=== PATIENT | male | born 1985 | race Caucasian/White ===

== ENCOUNTER 2020-02-24 11:05 | Outpatient (NON) | payer OTHER, SELFPAY ==
[2020-02-24 21:33] LABS: SARS-CoV-2 RNA PCR Negative
== END 2020-02-24 11:06 ==
PROVIDERS: Visit Provider Nurse Practitioner Family
DX: R68.89 Other general symptoms and signs (principal); Z20.828 Contact with and (suspected) exposure to other viral communicable diseases
CPT/HCPCS: 87635; C9803; U0003

== ENCOUNTER 2023-08-05 16:15 | Emergency (ER) | payer OTHER, SELFPAY ==
[2023-08-05 16:30] VITALS: BP 123/83; PULSE 92; RESP 16; TEMP 36.9; O2SAT 100
--- NOTE | 2023-08-05 16:55 | ED.EXTPRO ---
HPI - Extremity Problem General Chief complaint: Extremity Problem,Nontraumatic Stated complaint: Left Shoulder/Arm Pain Time Seen by Provider: 08/05/23 16:56 Source: patient Mode of arrival: ambulatory Limitations: no limitations History of Present Illness HPI Narrative: 38-year-old male presents with complaint of left upper back pain for the past several days. Patient has tingling sensation to left arm. Reports that left upper back pain improves with movement but at rest is a nagging constant pain. Taking [facility] with no relief of symptoms. Had similar pain 2 years ago and had imaging done that was normal. Was given cortisone injection to left shoulder which helped. Patient has normal range of motion and is distal neurovascularly intact. All systems reviewed and negative except as noted above. Related Data Home Medications Medication Instructions Recorded Confirmed levothyroxine 50 mcg tablet 50 mcg PO DAILY 08/05/23 08/05/23 Allergies Allergy/AdvReac Type Severity Reaction Status Date / Time No Known Allergies Allergy Mild Verified 08/05/23 16:34 Review of Systems Review of Systems: CONSTITUTIONAL: Denies fever, chills, or sweats. EYES: Denies visual changes, redness, or discharge. ENT: Denies rhinorrhea, congestion, sore throat, or otalgia. CARDIOVASCULAR: Denies chest pain, palpitations, or edema. RESPIRATORY: Denies cough or dyspnea. GASTROINTESTINAL: Denies abdominal pain, nausea, vomiting, or diarrhea. GENITOURINARY: Denies dysuria or hematuria. SKIN: Denies rash or itching. MUSCULOSKELETAL: Reports left upper back pain. Denies joint pain, or myalgia. NEUROLOGIC: Denies headache, numbness, or weakness. reports intermittent tingling sensation to left upper arm PSYCHIATRIC: Denies anxiety or depression. All other systems reviewed are negative, except as documented in HPI. [facility] Family History Family History (Updated 01/06/16 @ 23:21 by DOCTOR UNKNOWN) Mother Patient's mother is in good health Father Patient's father is in good health Social History Social History Smoking status: Current every day smoker Alcohol intake: current Comments At time of signature, agree with nursing past medical, surgical, social and family history. There is no relevant family history pertinent to the presenting complaint. Exam Narrative: GENERAL: This is a well-nourished, well-developed patient, in no apparent distress. HEAD: normocephalic, atraumatic. EYES: PERRL. Sclera clear/white. Vision is grossly intact. EARS: External ears normal NOSE: External nose normal NECK: Neck supple, non-tender without lymphadenopathy, masses or thyromegaly. CARDIOVASCULAR: Regular rate and rhythm without murmurs, gallops, or rubs. RESPIRATORY: Clear to auscultation. Breath sounds equal bilaterally. No wheezes, rales, or rhonchi. SKIN: warm, Dry, intact with no suspicious lesions or rash, good texture and turgor. NEURO: awake, alert, and oriented to person, place and time. There were no obvious focal neurologic abnormalities. EXTREMITIES: No joint tenderness, effusion, or edema noted. BACK: tenderness to L upper rhomboid/trapezius. normal ROM to L shoulder. 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 LUE distal NV intact. Course Course Level of Care: Express Care Visit Vital Signs Vital signs: Vital Signs Temperature 36.9 C 08/05/23 16:30 Pulse Rate 92 08/05/23 16:30 Respiratory Rate 16 08/05/23 16:30 Blood Pressure 123/83 08/05/23 16:30 Pulse Oximetry 100 08/05/23 16:30 Oxygen Delivery Room Air 08/05/23 16:30 Temperature 36.9 C 08/05/23 16:30 Pulse Rate 92 08/05/23 16:30 Respiratory Rate 16 08/05/23 16:30 Blood Pressure 123/83 08/05/23 16:30 Pulse Oximetry 100 08/05/23 16:30 Oxygen Delivery Room Air 08/05/23 16:30 reviewed MDM - Extremity (Nontraumatic) MDM Narrative Medical decision making narrative: will treat patient's pain with steroids, ibu
== END 2023-08-05 17:15 | disposition home or self-care (01) ==
PROVIDERS: Emergency Provider Nurse Practitioner Family; PCP Nurse Practitioner Family
DX: M54.10 Radiculopathy, site unspecified (principal); M54.6 Pain in thoracic spine; E03.9 Hypothyroidism, unspecified
CPT/HCPCS: 99213; G0463